=== PATIENT | male | born 1990 | race Caucasian/White ===

== ENCOUNTER 2021-01-08 13:24 | Day surgery (SDC) | payer SELFPAY ==
[2021-01-08] MEDS ORDERED: Albuterol 0.083% 2.5 MG/3 ML Neb Soln NEB ONE (13:30)
[2021-01-08] MEDS ORDERED: Propofol 200 MG/20 ML SDV ONE (14:07)
[2021-01-08] MEDS ORDERED: Ondansetron 4 MG/2 ML SDV ONE (14:07)
[2021-01-08] MEDS ORDERED: Midazolam 1 MG/ML 2 ML SDV ONE (14:07)
[2021-01-08] MEDS ORDERED: Lidocaine 1% 4 ML ONE (14:07)
[2021-01-08] MEDS ORDERED: Succinylcholine/Sod PF 100 MG/5 ML SYRINGE IV ONE (14:07)
[2021-01-08] MEDS ORDERED: Rocuronium 50 MG/5 ML Vial ONE (14:07)
[2021-01-08] MEDS ORDERED: fentaNYL 250 MCG/5 ML SDV ONE (14:07)
[2021-01-08] MEDS ORDERED: Metoclopramide 10 MG/2 ML SDV ONE (14:11)
[2021-01-08] MEDS ORDERED: Bupivacaine 0.5%/EPINEPHrine 1:200,000 50 ML MDV ONE (14:12)
[2021-01-08] MEDS ORDERED: Sodium Chloride 0.9% 10 ML Syringe FLUSH PRN (14:23)
[2021-01-08] MEDS ORDERED: Lidocaine 1%/Sod Bicarbonate in NS 8.4% 1 ML Syringe IDERM PRN (14:23)
--- NOTE | 2021-01-08 14:23 | PCM.PREANE ---
Preanesthetic Assessment - Procedure Proposed Procedure: lap appy - Anesthesia/Transfusion/Family Hx Anesthesia History: No Prior Anesthesia Family History of Anesthesia Reaction: No Transfusion History: No Prior Transfusion(s) - Review of Systems General: Fever (yesterday) Pulmonary: No Symptoms Cardiovascular: No Symptoms Gastrointestinal: Abdominal Pain (yesterday at 10 pm- no nausea or vomit) Neurological: No Symptoms Other: Reports: None - Physical Assessment NPO Status Date: 01/08/21 NPO Status Time: 10:00 (8oz water and chewed) Vital Signs: 145/96 67 97% 97.9 18 Height: 6 ft 1 in Weight: 116.12 kg ASA Class: 2E Mental Status: Alert & Oriented x3 Airway Class: Mallampati = 1 Dentition: Reports: Normal Dentition Thyro-Mental Finger Breadths: 3 Mouth Opening Finger Breadths: 3 ROM/Head Extension: Full Lungs: Clear to Auscultation, Normal Respiratory Effort Cardiovascular: Regular Rate, Regular Rhythm - Blood Blood Available: No - Acknowledgements Anesthesia Type Planned: General Anesthesia Pt an Appropriate Candidate for the Planned Anesthesia: Yes Alternatives and Risks of Anesthesia Discussed w Pt/Guardian: Yes Pt/Guardian Understands and Agrees with Anesthesia Plan: Yes PreAnesthesia Questionnaire Cardiovascular History: Reports: None Respiratory History: Reports: Other (See Below) (covid positive 12/24- cold symptoms and shortness of breath) Gastrointestinal History: Reports: None Musculoskeletal History: Reports: None Psychiatric History: Reports: None Endocrine/Metabolic History: Reports: Obesity/BMI 30+ Oncologic (Cancer) History: Reports: None - Past Surgical History Head Surgeries/Procedures: Reports: None - History Comment History Comment: no home meds - SUBSTANCE USE Tobacco Use Status *Q: Former Tobacco User Tobacco Use Within Last Twelve Months: Snuff/Dip Second Hand Smoke Exposure: Yes Days Per Week of Alcohol Use: 1 Number of Drinks Per Day: 3 Total Drinks Per Week: 3 Recreational Drug Use History: No - CURRENT (IN HOUSE) MEDS Current Meds: Current Medications Discontinued Medications Bupivacaine HCl/Epinephrine Bitart (Bupivacaine 0.5%/Epinephrine 1:200,000 50 Ml Mdv) Confirm Administered Dose 50 ml .ROUTE .STK-MED ONE Stop: 01/08/21 14:13 Fentanyl (Fentanyl 250 Mcg/5 Ml Sdv) Confirm Administered Dose 250 mcg .ROUTE .STK-MED ONE Stop: 01/08/21 14:08 Lidocaine HCl (Xylocaine-Mpf 1%) Confirm Administered Dose 4 mls @ as directed .ROUTE .ST-MED ONE Stop: 01/08/21 14:08 Metoclopramide HCl (Metoclopramide 10 Mg/2 Ml Sdv) Confirm Administered Dose 10 mg .ROUTE .STK-MED ONE Stop: 01/08/21 14:12 Midazolam HCl (Midazolam 1 Mg/Ml 2 Ml Sdv) Confirm Administered Dose 2 mg .ROUTE .ST-MED ONE Stop: 01/08/21 14:08 Ondansetron HCl (Ondansetron 4 Mg/2 Ml Sdv) Confirm Administered Dose 4 mg .ROUTE .ST-MED ONE Stop: 01/08/21 14:08 Propofol (Propofol 200 Mg/20 Ml Sdv) Confirm Administered Dose 200 mg .ROUTE .STK-MED ONE Stop: 01/08/21 14:08 Rocuronium [place] (Rocuronium 50 Mg/5 Ml Vial) Confirm Administered Dose 50 mg .ROUTE .STK-MED ONE Stop: 01/08/21 14:08
[2021-01-08] MEDS ORDERED: Lactated Ringers 1,000 ML IV SCH (14:30)
--- NOTE | 2021-01-08 14:36 | PCM.HP.2 ---
H&P History of Present Illness - General Date of Service: 01/08/21 Source of Information: Patient History Limitations: Reports: No Limitations - History of Present Illness Initial Comments - Free Text/Narative: Patient started to have right lower quadrant abdominal pain last night. Associated with mild nausea and subjective fever. no emesis. No prior surgeries. chews but does not smoke. occasional EtOH use. Presented to [facility] where CT confirmed acute appendicitis. Was transferred here for the procedure. No other issues. Onset of Symptoms: Reports: Gradual Duration of Symptoms: Reports: Day(s): (1) Location: Reports: Abdomen Quality: Reports: Sharp Severity: Severe Improves with: Reports: Immobilization Worsens with: Reports: Movement Social & Family History - Tobacco Use Tobacco Use Status *Q: Current Every Day Tobacco User (chews) Tobacco Use Within Last Twelve Months: Smokeless Tobacco Used Tobacco, but Quit: No - Alcohol Use Alcohol Use Frequency: Socially H&P Review of Systems - Review of Systems: Review Of Systems: See Below General: Reports: No Symptoms HEENT: Reports: No Symptoms Pulmonary: Reports: No Symptoms Cardiovascular: Reports: No Symptoms Gastrointestinal: Reports: Abdominal Pain Genitourinary: Reports: No Symptoms Musculoskeletal: Reports: No Symptoms Skin: Reports: No Symptoms Psychiatric: Reports: No Symptoms Neurological: Reports: No Symptoms Hematologic/Lymphatic: Reports: No Symptoms Exam - Exam Exam: See Below - Vital Signs Weight: 116.12 kg - Exam General: Alert, Oriented, Cooperative Lungs: Clear to Auscultation, Normal Respiratory Effort Cardiovascular: Regular Rate, Regular Rhythm, Normal S1, Normal S2 GI/Abdominal Exam: Soft, No Distention, Tender (RLQ) Problem List Initiated/Reviewed/Updated: No Orders Last 24hrs: Active Orders 24 hr Category Date Time Status Peripheral IV Care [RC] . DIRECTED Care 01/08/21 14:23 Active RT Aerosol Therapy [RC] ASDIRECTED Care 01/08/21 14:24 Active Verify Patient Consent Obtain [RC] ASDIRECTED Care 01/08/21 14:23 Active Albuterol [Proventil Neb Soln] Med 01/08/21 14:23 Pending 2.5 mg NEB ONETIME ONE Lactated Ringers [Ringers, Lactated] 1,000 ml Med 01/08/21 14:30 Ordered IV ASDIRECTED Lidocaine 1%/Sod Bicarbonate [Buffered Lidocaine 1% in Med 01/08/21 14:23 Ordered NS 8.4%] 0.25 ml IDERM ONETIME PRN Sodium Chloride 0.9% [Saline Flush] Med 01/08/21 14:23 Ordered 10 ml FLUSH ASDIRECTED PRN cefOXitin [Mefoxin in Dextrose,Iso-Osm 2 GM/50 ML] 2 gm Med 01/08/21 14:30 Ordered Premix Bag 1 bag IV ONETIME Medication Administration Instruction [OM.PC] Routine Oth 01/08/21 14:23 Ordered Peripheral IV Insertion Adult [OM.PC] Routine Oth 01/08/21 14:23 Ordered Medication Orders Albuterol (Albuterol 0.042% 1.25 Mg/3 Ml Neb Soln) 2.5 mg NEB ONETIME ONE Stop: 01/08/21 14:24 Lactated Ringer's (Ringers, Lactated) 1,000 mls @ 125 mls/hr IV ASDIRECTED SANJUANITA Cefoxitin Sodium 2 gm/ Premix 50 mls @ 100 mls/hr IV ONETIME SANJUANITA Lidocaine/Sodium Bicarbonate (Lidocaine 1%/Sod Bicarbonate In Ns 8.4% 1 Ml Syringe) 0.25 ml IDERM ONETIME PRN PRN Reason: Prior to IV Start Sodium Chloride (Sodium Chloride 0.9% 10 Ml Syringe) 10 ml FLUSH ASDIRECTED PRN PRN Reason: Keep Vein Open Assessment/Plan Comment:: Patient has acute appendicitis confirmed on exam and CT. I discussed with him options including antibiotics and surgery. We discussed risks, benefits and alternatives for each. Patient opted to proceed with surgery. Informed consent was signed. Pre-op antibiotics consisting of Ancef will be given. Plan: Appendectomy today. - Mortality Measure Prognosis:: Good (localized disease)
[2021-01-08] MEDS ORDERED: cefOXitin 2 GM in Premix Bag 1 BAG IV ONE (14:45)
[2021-01-08] MEDS ORDERED: Ketamine 500 mg/10 ML MDV ONE (15:02)
[2021-01-08] MEDS ORDERED: Dexamethasone 4 MG/ML 5 ML MDV ONE (15:12)
[2021-01-08] MEDS ORDERED: HYDROmorphone 0.5 MG/0.5 ML Syringe ONE (15:15)
[2021-01-08] MEDS ORDERED: HYDROmorphone 0.5 MG/0.5 ML Syringe IVPUSH PRN (15:22)
[2021-01-08] MEDS ORDERED: fentaNYL 100 MCG/2 ML SDV IVPUSH PRN (15:22)
[2021-01-08] MEDS ORDERED: Ondansetron 4 MG/2 ML SDV IVPUSH PRN (15:22)
[2021-01-08] MEDS ORDERED: Ketorolac 30 MG/ML SDV ONE (15:29)
[2021-01-08] MEDS ORDERED: Lactated Ringers 1,000 ML ONE (15:39)
--- NOTE | 2021-01-08 16:04 | PCM.POSTAN ---
POST ANESTHESIA ASSESSMENT - MENTAL STATUS Mental Status: Somnolent - VITAL SIGNS Vital Signs: Last Vital Signs Temp 97.9 F 01/08/21 14:45 Pulse 67 01/08/21 14:45 Resp 18 01/08/21 14:45 BP 145/96 H 01/08/21 14:45 Pulse Ox 97 01/08/21 14:45 1557 162/70 79 22 97.3 98% - RESPIRATORY Respiratory Status: Respiratory Rate WNL, Airway Patent, O2 Saturation Stable, Supplemental Oxygen - CARDIOVASCULAR CV Status: Pulse Rate WNL, Blood Pressure Stable - GASTROINTESTINAL GI Status: No Symptoms - PAIN Pain Score: 0 - POST OP HYDRATION Hydration Status: Adequate & Stable
--- NOTE | 2021-01-08 16:31 | PCM48HPAN ---
Post Anesthesia Note - EVALUATION WITHIN 48HRS OF ANESTHETIC Vital Signs in Normal Range: Yes Patient Participated in Evaluation: Yes Respiratory Function Stable: Yes Airway Patent: Yes Cardiovascular Function Stable: Yes Hydration Status Stable: Yes Pain Control Satisfactory: Yes Nausea and Vomiting Control Satisfactory: Yes Mental Status Recovered: Yes Vital Signs: Last Vital Signs Temp 97.1 F 01/08/21 16:27 Pulse 7 L 01/08/21 16:27 Resp 18 01/08/21 16:27 BP 140/80 01/08/21 16:27 Pulse Ox 97 01/08/21 16:27 - COMMENTS/OBSERVATIONS Free Text/Narrative:: rests- states starting to feel a little pain now.
--- NOTE | 2021-01-08 16:37 | OR ---
DATE OF OPERATION: 01/08/2021 SURGEON: Judy Koo MD PREOPERATIVE DIAGNOSIS: Acute appendicitis. POSTOPERATIVE DIAGNOSIS: Acute appendicitis with local peritonitis, no gangrene, no perforation, no abscess OPERATION PERFORMED: Laparoscopic appendectomy. ESTIMATED BLOOD LOSS: 25 mL. ANESTHESIA: General endotracheal with local anesthetic consisting of 0.5% Marcaine with epinephrine 1:100,000. COMPLICATIONS: None. INDICATION AND CONSENT: The patient is a 30-year-old male who started having right lower quadrant pain last night. The patient's pain worsened this morning. He went to the emergency department in [facility] where acute appendicitis was confirmed and was transferred to us for procedure. We discussed with the patient risks, benefits, and alternatives as well as options consisting of surgical appendectomy versus antibiotics alone. The patient wanted to proceed with appendectomy. Informed consent was obtained. DESCRIPTION OF PROCEDURE: The patient was taken to the operating room, placed in supine position, and padded appropriately. SCDs were placed. Antibiotics consisting of cefoxitin was administered. General endotracheal anesthesia was induced. Then, abdomen was prepped and draped in the usual sterile fashion. Time-out was performed prior to the start of the procedure. We began the procedure by injecting local anesthetic in the infraumbilical position. Then, incision was made. Umbilical stalk was elevated. Then, a Veress needle was inserted. The abdomen was insufflated to 15 mmHg. Then, a 12 mm trocar was inserted at the infraumbilical site under laparoscopic visualization. Cursory exploration of the abdomen did not reveal any injuries to Veress needle or trocar insertion. Two additional 5 mm trocars were inserted, one in the suprapubic area and another in the left lower quadrant. The patient placed in Trendelenburg with left side down, and we focused on the right lower quadrant. Inflamed appendix was visualized and elevated. Appendiceal base was detached from lateral attachments with LigaSure Impact. A window was made at the base of the appendix with a [place], and the appendix was divided at its base with a purple load using Endo-JASMYNE stapler. The mesoappendix was divided with LigaSure Impact. Appendix was placed in the Endo Catch bag. The area of dissection removed was inspected and found to be hemostatic. Then, the appendix was removed through the infraumbilical incision. The fascia at this site was closed with 0 Vicryl stitches using a suture passer and Pa-Neil device. Then, abdomen was desufflated and trocars removed, and skin sites were all reapproximated with 4-0 Monocryl and then Dermabond was placed. The patient tolerated the procedure well, will be extubated, and return home. The patient will come to clinic in 2 weeks for postop check. MMODAL /[id number] [id number]
== END 2021-01-08 17:30 | disposition home or self-care (01) ==
LOC: JD.ED 13:24 → JD.SDS 13:24 → EDSTATUS 13:50 → JD.SDS 17:30
PROVIDERS: ATTEND Surgery
DX: K35.30 Acute appendicitis with localized peritonitis, without perforation or gangrene (principal); Z86.16 Personal history of COVID-19; F17.220 Nicotine dependence, chewing tobacco, uncomplicated
CPT/HCPCS: 44970; J0330; J0694; J1100; J1170; J1885; J2250; J2405; J2704; J2710; J2765; J3010; J3490; J7120; 00840